=== PATIENT | female | born 1990 | race Asian ===

== ENCOUNTER → 2023-12-08 09:50 | Outpatient (REF) | payer BC, SELFPAY | LOC: PNTC 09:50 | PROVIDERS: ATTENDING PHYSICIAN Obstetrics & Gynecology | DX: O09.519 Supervision of elderly primigravida, unspecified trimester (principal); Z34.82 Encounter for supervision of other normal pregnancy, second trimester | CPT/HCPCS: 76811 ==

== ENCOUNTER → 2024-01-11 09:52 | Outpatient (REF) | payer BC, SELFPAY | LOC: PNTC 09:52 | PROVIDERS: ATTENDING PHYSICIAN Obstetrics & Gynecology | DX: O34.219 Maternal care for unspecified type scar from previous cesarean delivery (principal) | CPT/HCPCS: 76816 ==